=== PATIENT | male | born 1960 | race Native Hawaiian/Other Pacific Islander ===

== ENCOUNTER 2020-03-03 12:19 | Outpatient (CLI) | payer BC, OTHER | END 2020-03-03 21:53 | disposition home or self-care (01) | LOC: LAB 12:19 | DX: U07.1 COVID-19 (principal); R05 Cough; R50.9 Fever, unspecified; J02.9 Acute pharyngitis, unspecified | CPT/HCPCS: 87635; G2023; U00003 ==

== ENCOUNTER 2020-03-07 11:53 | Outpatient (CLI) | payer BC, OTHER | END 2020-03-07 19:21 | disposition home or self-care (01) | LOC: RAD 11:53 | DX: R05 Cough (principal); R50.9 Fever, unspecified; J02.9 Acute pharyngitis, unspecified ==

== ENCOUNTER → 2020-10-31 | Outpatient (CLI) | payer BC, OTHER | LOC: INF 17:43 | PROVIDERS: ATTEND Internal Medicine | DX: Z23 Encounter for immunization (principal) | CPT/HCPCS: 96372 ==

== ENCOUNTER 2020-11-24 08:46 | Outpatient (CLI) | payer BC, OTHER | END 2020-11-24 23:59 | disposition home or self-care (01) | LOC: INF 08:46 | PROVIDERS: ATTEND Internal Medicine | DX: Z23 Encounter for immunization (principal) | CPT/HCPCS: 96372 ==